=== PATIENT | female | born 1965 | race African-American/Black ===

== ENCOUNTER 2021-03-27 06:49 | Day surgery (SDC) | payer MEDICARE, MEDICAID ==
[~2021-03-27 06:49] MED LIST: Bupivacaine 0.5% 30 ML SDV ONE; Nozin Nasal Sanitizer NASBOTH ONE
[2021-03-27] MEDS ORDERED: ceFAZolin 2 GM in Premix Bag 1 BAG IV ONE (07:30)
[2021-03-27] MEDS ORDERED: Lactated Ringers 1,000 ML IV SCH (07:30)
[2021-03-27] MEDS ORDERED: Midazolam 1 MG/ML 2 ML SDV ONE ×2 (08:15→10:40)
[2021-03-27] MEDS ORDERED: Propofol 200 MG/20 ML SDV ONE ×2 (08:15→10:44)
[2021-03-27] MEDS ORDERED: fentaNYL 100 MCG/2 ML SDV ONE ×2 (08:15→10:50)
[2021-03-27] MEDS ORDERED: Nozin Nasal Sanitizer NASBOTH ONE (08:16)
[2021-03-27] MEDS ORDERED: Bupivacaine 0.5% 30 ML SDV ONE (08:17)
== END 2021-03-27 14:05 | disposition home or self-care (01) ==
LOC: JP.SDS 06:49
PROVIDERS: ATTEND Specialist
DX: M75.111 Incomplete rotator cuff tear or rupture of right shoulder, not specified as traumatic (principal); M25.811 Other specified joint disorders, right shoulder; M77.8 Other enthesopathies, not elsewhere classified; S46.111A Strain of muscle, fascia and tendon of long head of biceps, right arm, initial encounter; I10 Essential (primary) hypertension; J44.9 Chronic obstructive pulmonary disease, unspecified; E66.9 Obesity, unspecified; K21.9 Gastro-esophageal reflux disease without esophagitis; Z87.891 Personal history of nicotine dependence; Z88.8 Allergy status to other drugs, medicaments and biological substances
CPT/HCPCS: 29826; 29827; 36415; 80053; 85027; A9270; C1713; J0690; J2250; J2704; J3010; J3490; J7120

== ENCOUNTER 2021-08-30 06:05 | Day surgery (SDC) | payer MEDICARE, MEDICAID ==
[2021-08-30] MEDS ORDERED: Nozin Nasal Sanitizer NASBOTH ONE (06:30)
[2021-08-30] MEDS ORDERED: Bupivacaine 0.5% 30 ML SDV ONE (07:10)
[2021-08-30 07:15] LABS: ESTIMATED GFR 58 mL/min (>60)
[2021-08-30] MEDS ORDERED: Lactated Ringers 1,000 ML IV SCH (07:30)
[2021-08-30] MEDS ORDERED: fentaNYL 250 MCG/5 ML SDV ONE ×2 (07:46→09:14)
[2021-08-30] MEDS ORDERED: Glycopyrrolate 0.2 MG/ML 5 ML MDV ONE (07:47)
[2021-08-30] MEDS ORDERED: Neostigmine Methylsulfate 1 MG/ML 5 ML Syringe ONE (07:47)
[2021-08-30] MEDS ORDERED: Rocuronium 50 MG/5 ML Vial ONE (07:47)
[2021-08-30] MEDS ORDERED: Succinylcholine 200 MG/10 ML MDV ONE (07:47)
[2021-08-30] MEDS ORDERED: Ondansetron 4 MG/2 ML SDV ONE (07:47)
[2021-08-30] MEDS ORDERED: Propofol 200 MG/20 ML SDV ONE (07:47)
[2021-08-30] MEDS ORDERED: Dexamethasone 4 MG/ML SDV ONE (07:47)
[2021-08-30] MEDS ORDERED: Albuterol/Ipratropium 3.0-0.5 MG/3 ML Neb Soln NEB ONE (08:00)
[2021-08-30] MEDS ORDERED: ceFAZolin 2 GM in Premix Bag 1 BAG IV ONE (08:30)
[2021-08-30] MEDS ORDERED: Morphine 2 MG/ML SYRINGE IVPUSH ONE (11:30)
[2021-08-30] MEDS ORDERED: Acetaminophen/oxyCODONE 325-5 MG Tab PO PRN (11:43)
[2021-08-30] MEDS ORDERED: Ondansetron 4 MG Tab.DIS PO ONE (15:00)
== END 2021-08-30 15:09 | disposition home or self-care (01) ==
LOC: JP.SDS 06:05
PROVIDERS: ATTEND Specialist
DX: S73.192A Other sprain of left hip, initial encounter (principal); S76.212A Strain of adductor muscle, fascia and tendon of left thigh, initial encounter; I10 Essential (primary) hypertension; F32.A Depression, unspecified; E78.00 Pure hypercholesterolemia, unspecified; J45.909 Unspecified asthma, uncomplicated; G47.33 Obstructive sleep apnea (adult) (pediatric); E11.9 Type 2 diabetes mellitus without complications; Z88.8 Allergy status to other drugs, medicaments and biological substances; Z98.890 Other specified postprocedural states; Z87.891 Personal history of nicotine dependence; Z01.812 Encounter for preprocedural laboratory examination; Z20.822 Contact with and (suspected) exposure to COVID-19
CPT/HCPCS: 29862; 29999; 36415; 76000; 80053; 85025; 94640; A9270; C1713; C1769; J0330; J0690; J1100; J2270; J2405; J2704; J2710; J3010; J3490; J7120; Q0162; U0002; J7620